=== PATIENT | female | born 1940 | race Caucasian/White ===

== ENCOUNTER 2018-01-01 15:25 | Emergency (ER) | payer MEDICARE, OTHER ==
[2018-01-01] MEDS ORDERED: EPINEPHrine 1 MG, Admixture Fee 1 EACH in Dextrose 5% in Water 250 ML IVPB SCH (15:45)
[2018-01-01 15:56] LABS: ALT (SGPT) 114 U/L (8-55); AST (SGOT) 155 U/L (5-34); Albumin 3.1 g/dL (3.4-4.8); Alkaline Phosphatase 87 U/L (40-150); Anion Gap 22 mmol/L (10-20); BUN (Urea Nitrogen) 25 mg/dL (9.8-20.1); Bilirubin, Total 0.7 mg/dL (0.2-1.2); CK (CPK) 334 U/L (29-168); Calc. Creatinine Clearance 0 mL/min (70-130); Calcium 8.6 mg/dL (7.8-10.44); Carbon Dioxide 17 mmol/L (23-31); Chloride 102 mmol/L (98-107); Estimated GFR-MDRD 48; Globulin 3.3 g/dL (2.4-3.5); Glucose 164 mg/dL (83-110); Potassium 4.8 mmol/L (3.5-5.1); Protein, Total 6.4 g/dL (6.0-8.3); Sodium 136 mmol/L (136-145)
[2018-01-01 15:58] LABS: Bicarbonate (HCO3v) 25.7 mmol/L (1.0-85.0); CO2 Tension (PvCO2) 77.8 mmHg (41.0-51.0); Calcium, Ionized 1.13 mmol/L (1.12-1.32); Hemoglobin - Calc 8.7 g/dL (12.0-18.0); Potassium 4.2 mmol/L (3.4-4.7); T. Carbon Dioxide 28.1 mmol/L (1.0-85.0); pH (Venous) 7.127 (7.35-7.45); vO2 Saturation-calc 6.9 % (94-98)
[2018-01-01 16:08] LABS: CKMB 30.5 ng/mL (0-6.6); Troponin I 2.807 ng/mL (< 0.028)
[2018-01-01] MEDS ORDERED: EPINEPHrine 1 MG/10 ML Abboject SYRINGE ONE (21:23)
[2018-01-01] MEDS ORDERED: Sodium Bicarb 50 MEQ/50 ML Abboject 8.4% SYRINGE ONE (21:23)
== END 2018-01-01 15:49 | disposition expired ==
LOC: ERS 15:25
DX: I46.9 Cardiac arrest, cause unspecified (principal); I21.9 Acute myocardial infarction, unspecified; I10 Essential (primary) hypertension
CPT/HCPCS: 80053; 82330; 82553; 82803; 84484; 93005; 94002; 94760; 96374; 96375; J0171; J0282; J7070